=== PATIENT | male | born 1950 | race Caucasian/White ===

== ENCOUNTER 2016-12-21 15:28 | Emergency (ER) | payer OTHER ==
[~2016-12-21] VITALS: Ht 172.7 cm
[~2016-12-21 15:28] MED LIST: ALLOPURINOL100 MG PO; ASPIRIN ADULT L81 M1 PO; ASPIRIN81 M1 PO; CARAFATE1 G1 PO; COZAAR100 MG PO; CYMBALTA30 MG PO; FLUTICASON0.05 MG/AC NAS; GLUCOPHAGE500 M1 PO; GOUT MED PO; HYDR12.5C PO; HYDROCODONE BIT1 T11 PO; LANTUS100 U/ML SC; LASIX20 MG PO; LISINOPRIL2.5 MG PO; NAPROSYN500 MG PO; NORTRIPTYLINE H50 M1 PO; PRILOSEC20 M1 PO; ROBAXIN PO; ROBAXIN-750750 MG PO; STOMACH MED PO; TRAMADOL HCL50 MG PO; ZITHROMAX Z PA250 MG PO
[2016-12-21] MEDS ORDERED: CEPHALEXIN500 M1 PO (17:01)
[2016-12-21] MEDS ORDERED: BACTRIM DS 8001 TA1 PO (17:01)
== END 2016-12-21 17:14 | disposition home or self-care (01) ==
LOC: ED 15:28
DX: L03.111 Cellulitis of right axilla (principal); Z88.1 Allergy status to other antibiotic agents; Z88.6 Allergy status to analgesic agent; Z88.8 Allergy status to other drugs, medicaments and biological substances; Z79.4 Long term (current) use of insulin; Z79.899 Other long term (current) drug therapy

== ENCOUNTER → 2017-01-02 | Day surgery (SDC) | payer OTHER ==
[2016-12-31 15:08] LABS: BILIRUBIN NEGATIVE (NEGATIVE); BLOOD NEGATIVE (NEGATIVE); CLARITY CLEAR (CLEAR); COLOR YELLOW (YELLOW); GLUCOSE NEGATIVE (NEGATIVE); KETONE NEGATIVE (NEGATIVE); LEUKO ESTERASE NEGATIVE (NEGATIVE); NITRITE NEGATIVE (NEGATIVE); PH 6.5 (5.0-9.0); PROTEIN NEGATIVE (NEGATIVE); UROBILINOGEN 0.2 E.U./dl (0.2-1.0)
[2016-12-31 15:13] LABS: BACTERIA TRACE; EPITHELIAL CELLS 0-2; RBC 0-2 rbc/hpf (0-2); WBC 0-2 wbc/hpf (0-5)
[2016-12-31 15:14] LABS: BASO # 0.1 10*3/uL (0.0-0.1); BASO % 0.8 % (0.0-1.0); EOS # 0.3 10*3/uL (0.0-0.4); EOS % 3.1 % (1.0-4.0); HEMATOCRIT 37.4 % (42.0-52.0); HEMOGLOBIN 12.5 g/dl (14.0-18.0); IG # 0.1 10*3/uL (0.0-0.1); LYMPH # 3.2 10*3/uL (1.3-4.4); LYMPH % 38.1 % (27.0-41.0); MEAN CORPUSCULAR HGB 30.4 pg (27.0-31.0); MEAN CORPUSCULAR HGB CONC 33.4 g/dl (33.0-37.0); MEAN PLATELET VOLUME 9.7 fl (9.6-12.3); MONO # 0.4 10*3/uL (0.1-1.0); NEUT # 4.4 10*3/uL (2.3-7.9); PLATELET COUNT AUTOMATED 385 10*3/uL (130-400); RED BLOOD COUNT 4.11 10*6/uL (4.50-5.90); RED CELL DISTRI WIDTH 12.4 % (0-14.5); WHITE BLOOD COUNT 8.4 10*3/uL (4.8-10.8)
[2016-12-31 15:41] LABS: BUN 14 mg/dl (7-24); CARBON DIOXIDE 35 mmol/L (21-32); CHLORIDE 101 mmol/L (98-107); EST GLOM FILT AFRICAN AMERICAN > 60 ml/min; GLUCOSE 91 mg/dL (65-99); POTASSIUM 4.8 mmol/L (3.5-5.1); SODIUM 142 mmol/L (136-145)
[2016-12-31 15:44] LABS: PROTHROMBIN TIME 10.7 SECONDS (9.0-12.4)
[~2017-01-02] VITALS: Ht 175.2 cm; Wt 154.2 kg
[~2017-01-02] MED LIST changes: +BACTRIM DS 8001 TA1 PO; +CEPHALEXIN500 M1 PO; +DILTIAZEM HCL180 M1 PO; +DOXYCYCLINE100 M3 PO; +VITAMIN D400 IU PO
--- NOTE | ~2017-01-02 | O ---
[place], [place] OPERATIVE NOTE NAME: SHANT MENDENHALL UNIT #: [id number] ROOM: DOCTOR: RICHARD SIMS MD BIRTHDATE: [birth year] DOS: 01/02/2017 PREOPERATIVE DIAGNOSIS: Right chest wall abscess. POSTOPERATIVE DIAGNOSIS: Right chest wall abscess. PROCEDURE: Incision and drainage of right forearm abscess. SURGEON: Richard Sims M.D. INSPECTOR SOLDERING: MSMady. ANESTHESIA: MAC. INDICATIONS: This is a 66-year-old gentleman who was seen in the Emergency Room a few days ago with a history of right chest wall abscess, who presented to the office with persistence of the abscess. It was decided to take the patient to the operating room for an incision and drainage. Procedure and its complications were explained to the patient in detail preoperatively. Complications that were discussed included but were not limited to, bleeding, infection, and damage to underlying vital structures. He agreed to proceed. DESCRIPTION OF PROCEDURE: After identifying the patient, the patient was brought to the operating suite and laid in the supine position. After IV sedation was administered, a timeout procedure was called and the parts were then painted and draped in the usual sterile fashion. An incision was made in the most fluctuant part of the abscess. The skin and the subcutaneous tissue were incised, the abscess cavity was entered. It was found to contain minimal serous fluid, no pus was encountered. The abscess cavity was then irrigated with saline and it was packed with the help of half inch iodoform pack. Dressing was given after the edges of the skin were infiltrated with 1% lidocaine. Dressing was placed. The patient tolerated the procedure well and was taken to the recovery room in stable fashion. There were no complications. Dr. Richard Sims, the attending surgeon, was present throughout the operating case. [place], [place] OPERATIVE NOTE NAME: SHANT MENDENHALL UNIT #: [id number] ROOM: DOCTOR: RICHARD SIMS MD BIRTHDATE: [birth year] Richard Sims MD CM:OPRECORD:OPERATIVE NOTE [phone] RICHARD SIMS MD 01/06/17 0723 interface
[2017-01-02 06:40] VITALS: BP 156/69
[2017-01-02 07:56] VITALS: BP 120/58
[2017-01-02 08:11] VITALS: BP 115/64
[2017-01-02 08:26] VITALS: BP 141/73
== END | disposition home or self-care (01) ==
LOC: SDC 12-31 11:00
PROVIDERS: Surgery
DX: L02.213 Cutaneous abscess of chest wall (principal); I10 Essential (primary) hypertension; E11.9 Type 2 diabetes mellitus without complications; F32.9 Major depressive disorder, single episode, unspecified; K21.9 Gastro-esophageal reflux disease without esophagitis

== ENCOUNTER → 2017-09-12 | Outpatient (CLI) | payer OTHER ==
[2017-09-12 10:10] LABS: BASO % 0.6 % (0.0-1.0); EOS # 0.2 10*3/uL (0.0-0.4); EOS % 2.6 % (1.0-4.0); HEMATOCRIT 37.3 % (42.0-52.0); HEMOGLOBIN 12.8 g/dl (14.0-18.0); LYMPH % 32.1 % (27.0-41.0); MEAN CELL VOLUME 92.1 fl (80.0-94.0); MEAN CORPUSCULAR HGB 31.6 pg (27.0-31.0); MEAN CORPUSCULAR HGB CONC 34.3 g/dl (33.0-37.0); MEAN PLATELET VOLUME 9.5 fl (9.6-12.3); MONO # 0.4 10*3/uL (0.1-1.0); MONO % 6.1 % (3.0-9.0); NEUT # 3.6 10*3/uL (2.3-7.9); NEUT % 58.3 % (47.0-73.0); PLATELET COUNT AUTOMATED 262 10*3/uL (130-400); RED BLOOD COUNT 4.05 10*6/uL (4.50-5.90); RED CELL DISTRI WIDTH 12.6 % (0-14.5); WHITE BLOOD COUNT 6.2 10*3/uL (4.8-10.8)
[2017-09-12 10:31] LABS: ALBUMIN 3.2 gm/dl (3.1-4.5); ALKALINE PHOSPHATASE 143 U/L (45-117); BUN 11 mg/dl (7-24); CHLORIDE 100 mmol/L (98-107); CHOLESTEROL 187 mg/dL (<200); CREATININE 1.28 mg/dL (0.70-1.30); HDL CHOLESTEROL 45 mg/dl (40-60); LDL CHOLESTEROL 115 mg/dL (9-159); POTASSIUM 3.5 mmol/L (3.5-5.1); SGOT/AST 11 IU/L (3-35); SGPT/ALT 14 U/L (12-78); SODIUM 138 mmol/L (136-145); TOTAL PROTEIN 7.2 gm/dL (6.4-8.2); TRIGLYCERIDES 133 mg/dl (<150); VLDL CHOLESTEROL 27 mg/dL (6-40)
== END | disposition home or self-care (01) ==
LOC: LAB 09:37
PROVIDERS: Internal Medicine
DX: E11.42 Type 2 diabetes mellitus with diabetic polyneuropathy (principal); N18.3 Chronic kidney disease, stage 3 (moderate); E11.22 Type 2 diabetes mellitus with diabetic chronic kidney disease; E03.9 Hypothyroidism, unspecified; E78.2 Mixed hyperlipidemia